=== PATIENT | male | born 1995 | race Two or more races ===

== ENCOUNTER 2021-12-15 20:17 | Emergency (ER) | payer BC ==
[~2021-12-15] VITALS: Ht 172.7 cm; Wt 72.6 kg
[2021-12-15] MEDS ORDERED: LIDOCAINE 1% INJ 50 ML MDV IJ ONE (20:43)
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
--- NOTE | 2021-12-15 20:50 | NUR ---
20G IV LINE RF ESTABLOSHED. BLOOD DRAWN AND SENT TO LAB
--- NOTE | 2021-12-15 20:53 | NUR ---
CONSENTSIGNED AND PLACED IN PT CHART
--- NOTE | 2021-12-15 20:57 | NUR ---
DR DOMINGUEZ AT BEDSIDE FOR MECHANICAL CORPORAL ASPIRATION FOR PRIAPISM
[2021-12-15] MEDS ORDERED: TERBUTALINE SULFATE 1 MG/ML VIAL ONE (20:58)
[2021-12-15] MEDS ORDERED: TERBUTALINE SULFATE 1 MG/ML VIAL SQ ONE (21:00)
[2021-12-15] MEDS ORDERED: LIDOCAINE HCL/PF 1% 30 ML VIAL IJ ONE (21:00)
[2021-12-15] MEDS ORDERED: PHENYLEPHRINE 10 MG/ML VIAL ONE (21:01)
[2021-12-15 21:04] LABS: BASOPHILS # (AUTO) 0.1 K/uL (0.0-0.2); BASOPHILS % (AUTO) 0.7 % (0.0-2.0); EOSINOPHILS % (AUTO) 1.9 % (0.0-6.0); HEMATOCRIT 45 % (39-51); HEMOGLOBIN 15.1 g/dL (13.5-17.5); LYMPHOCYTES # (AUTO) 3.1 K/uL (0.8-4.8); LYMPHOCYTES % (AUTO) 30.8 % (20.0-44.0); MEAN CORPUSCULAR HGB CONC 33 g/dl (31.0-36.0); MEAN CORPUSCULAR VOLUME 90 fL (80-96); MONOCYTES # (AUTO) 0.8 K/uL (0.1-1.30); NEUTROPHILS # (AUTO) 5.9 K/uL (1.8-8.9); NEUTROPHILS % (AUTO) 58.6 % (43.0-81.0); PLATELET COUNT (AUTO) 335 K/uL (150-450); RED BLOOD CELL COUNT(AUTO) 5.04 MIL/uL (4.5-6.0); WHITE BLOOD COUNT (AUTO) 10.1 K/uL (4.3-11.0)
[2021-12-15 21:12] LABS: CALCIUM, SERUM 8.7 mg/dL (8.5-10.1); CREATININE 0.9 mg/dL (0.6-1.3)
--- NOTE | 2021-12-15 21:14 | NUR ---
VBG COLLECTED BY DR DOMINGUEZ AND SENT TO LAB
--- NOTE | 2021-12-15 21:20 | NUR ---
DR EARL ON PHONE WITH UROLOGIST DR EATON
[2021-12-15] MEDS ORDERED: PHENYLEPHRINE 10 MG/ML VIAL IJ ONE (21:30)
[2021-12-15 21:40] LABS: ABG BASE EXCESS -7.7 mmol/L; ABG PCO2 51.6 mmHg (35.0-45.0); ABG PH 7.216 (7.350-7.450); ABG PO2 58.9 mmHg (75.0-100.0); COHb 2.1 % (0.5-1.5); MetHb 0.4 % (0.0-1.5); O2Hb 89.4 % (94.0-97.0); SITE, ABG Other
[2021-12-15 22:30] VITALS: BP 133/65
--- NOTE | 2021-12-15 22:30 | NUR ---
Patient discharged to home in stable condition. Written and verbal after care instructions given. Patient verbalizes understanding of instruction.IV removed. Catheter intact and site benign. Pressure and 4x4 applied to site. No bleeding noted.
== END 2021-12-15 22:30 | disposition home or self-care (01) ==
LOC: ER 20:24
DX: N48.39 Other priapism (principal); Z91.013 Allergy to seafood; R03.0 Elevated blood-pressure reading, without diagnosis of hypertension
CPT/HCPCS: 99284; 54220; 85025; 80048; 36415; 85730; 36600; J3490 ×2; J2370; J3105; 82803-TC

== ENCOUNTER 2021-12-29 08:26 | Emergency (ER) | payer BC ==
[~2021-12-29] VITALS: Ht 172.7 cm; Wt 72.6 kg
[2021-12-29] MEDS ORDERED: LIDOCAINE 1%-EPI 1:100,000 20 ML VIAL ONE (08:37)
[2021-12-29] MEDS ORDERED: LORAZEPAM INJ 2 MG/ML VIAL ONE (08:51)
--- NOTE | 2021-12-29 08:56 | NUR ---
DR WHITNEY AT BEDSIDE W/ PT
[2021-12-29] MEDS ORDERED: PHENYLEPHRINE 10 MG/ML VIAL IV ONE (09:00)
[2021-12-29] MEDS ORDERED: PHENYLEPHRINE 50 MG in IV NS 0.9% 245 ML IV ONE (09:00)
[2021-12-29] MEDS ORDERED: LIDOCAINE HCL/PF 1% 30 ML VIAL TP ONE (09:00)
[2021-12-29] MEDS ORDERED: LORAZEPAM INJ 2 MG/ML VIAL IV ONE (09:00)
--- NOTE | 2021-12-29 09:00 | NUR ---
IV LINE ESTABLISHED ON LAC #20.
--- NOTE | 2021-12-29 09:55 | NUR ---
IV removed. Catheter intact and site benign. Pressure and 4x4 applied to site. No bleeding noted.
[2021-12-29 10:52] VITALS: BP 118/68
--- NOTE | 2021-12-29 10:54 | NUR ---
Patient discharged to home in stable condition. Written and verbal after care instructions given. Patient verbalizes understanding of instruction.
== END 2021-12-29 10:54 | disposition home or self-care (01) ==
LOC: ER 08:31
DX: N48.39 Other priapism (principal); F32.A Depression, unspecified; Z91.013 Allergy to seafood
CPT/HCPCS: 99284; 54220; 96374; J2060; J3490 ×2; J7050; J2370

== ENCOUNTER 2022-02-07 15:17 | Emergency (ER) | payer BC ==
[~2022-02-07] VITALS: Ht 172.7 cm; Wt 73.0 kg
--- NOTE | 2022-02-07 15:31 | NUR ---
DR ORTIZ AT BEDSIDE
[2022-02-07] MEDS ORDERED: LIDOCAINE 2% 20 ML MDV ONE (15:39)
[2022-02-07] MEDS ORDERED: MORPHINE SULFATE INJ 4 MG/ML DISP.SYRIN ONE (15:42)
[2022-02-07] MEDS ORDERED: LIDOCAINE 2% 20 ML MDV TP ONE (16:00)
[2022-02-07] MEDS ORDERED: MORPHINE SULFATE INJ 2 MG/ML DISP.SYRIN IM ONE (16:00)
[2022-02-07] MEDS ORDERED: PHENYLEPHRINE 10 MG/ML VIAL IV ONE (16:00)
[2022-02-07 18:49] VITALS: BP 133/68
== END 2022-02-07 18:50 | disposition home or self-care (01) ==
LOC: ER 15:20
DX: N48.30 Priapism, unspecified (principal); F32.A Depression, unspecified; Z91.013 Allergy to seafood
CPT/HCPCS: 99285; 96374; 96372; J2270; J2370; J3490

== ENCOUNTER 2022-02-11 16:07 | Emergency (ER) | payer BC ==
[~2022-02-11] VITALS: Ht 172.7 cm; Wt 81.6 kg
[2022-02-11] MEDS ORDERED: MORPHINE SULFATE INJ 2 MG/ML DISP.SYRIN IV ONE (18:00)
[2022-02-11] MEDS ORDERED: ONDANSETRON HCL/PF 4 MG/2 ML VIAL IVP ONE (18:00)
[2022-02-11] MEDS ORDERED: PSEUDOEPHEDRINE HCL 30 MG TABLET PO ONE (18:00)
[2022-02-11] MEDS ORDERED: MORPHINE SULFATE INJ 4 MG/ML DISP.SYRIN ONE (18:10)
[2022-02-11] MEDS ORDERED: ONDANSETRON HCL/PF 4 MG/2 ML VIAL ONE (18:10)
[2022-02-11] MEDS ORDERED: PSEUDOEPHEDRINE HCL 30 MG TABLET ONE (18:11)
[2022-02-11] MEDS ORDERED: MORPHINE SULFATE INJ 2 MG/ML DISP.SYRIN IM ONE (18:30)
[2022-02-11] MEDS ORDERED: ONDANSETRON HCL/PF 4 MG/2 ML VIAL IM ONE (18:30)
--- NOTE | 2022-02-11 18:30 | NUR ---
MEDICATIONS ADMINISTERED INDICATED, LAILA WELL.
[2022-02-11] MEDS ORDERED: LIDOCAINE HCL/PF 1% 30 ML VIAL TP ONE (19:30)
--- NOTE | 2022-02-11 21:02 | NUR ---
Patient discharged to home in stable condition. Written and verbal after care instructions given. Patient verbalizes understanding of instruction.
[2022-02-11 21:06] VITALS: BP 152/87
== END 2022-02-11 21:06 | disposition home or self-care (01) ==
LOC: ER 16:14
DX: N48.30 Priapism, unspecified (principal); N48.89 Other specified disorders of penis; F32.A Depression, unspecified; Z91.013 Allergy to seafood
CPT/HCPCS: 99284; 96372 ×2; 76870; J3490; J2270; J2405

== ENCOUNTER 2022-02-14 10:00 | Emergency (ER) | payer BC ==
[~2022-02-14] VITALS: Ht 172.7 cm; Wt 81.6 kg
[2022-02-14] MEDS ORDERED: TERBUTALINE SULFATE 1 MG/ML VIAL ONE (10:27)
[2022-02-14] MEDS ORDERED: PHENYLEPHRINE 10 MG/ML VIAL ONE ×2 (10:27→11:03)
[2022-02-14] MEDS ORDERED: MORPHINE SULFATE INJ 2 MG/ML DISP.SYRIN ONE (10:27)
[2022-02-14] MEDS ORDERED: MORPHINE SULFATE INJ 2 MG/ML DISP.SYRIN IM ONE (10:30)
[2022-02-14] MEDS ORDERED: TERBUTALINE SULFATE 1 MG/ML VIAL SQ ONE (10:30)
[2022-02-14] MEDS ORDERED: PHENYLEPHRINE 10 MG/ML VIAL IJ ONE ×2 (10:30→12:00)
[2022-02-14] MEDS ORDERED: LIDOCAINE HCL/PF 1% 30 ML VIAL IM ONE (11:00)
[2022-02-14] MEDS ORDERED: LIDOCAINE HCL/MPF 1% 30 ML VIAL IJ ONE ×2 (11:20→11:55)
[2022-02-14] MEDS ORDERED: PHENYLEPHRINE 50 MG in IV NS 0.9% 245 ML IV ONE (11:30)
[2022-02-14] MEDS ORDERED: PHENYLEPHRINE 50 MG in IV NS 0.9% 245 ML IV PRN (12:00)
--- NOTE | 2022-02-14 12:43 | NUR ---
UROLOGIST DROP PIT WORKER AND ER MD ON THE PHONE
--- NOTE | 2022-02-14 12:43 | NUR ---
CALLED UROLOGIST PHARMACOEPIDEMIOLOGIST
[2022-02-14] MEDS ORDERED: HYDROCODONE/APAP 5/325MG TABLET PO ONE (13:00)
[2022-02-14] MEDS ORDERED: HYDROCODONE/APAP 5/325MG TABLET ONE (14:02)
[2022-02-14] MEDS ORDERED: OXYC5TAB3 PO (14:06)
[2022-02-14 14:32] VITALS: BP 126/64
--- NOTE | 2022-02-14 14:32 | NUR ---
Patient discharged to home in stable condition. Written and verbal after care instructions given. Patient verbalizes understanding of instruction.
== END 2022-02-14 14:33 | disposition home or self-care (01) ==
LOC: ER 10:51
DX: N48.39 Other priapism (principal); N48.89 Other specified disorders of penis; F32.A Depression, unspecified; Z91.013 Allergy to seafood; Z79.899 Other long term (current) drug therapy
CPT/HCPCS: 99284; 96372 ×2; J3490 ×3; J2370; J3105; J2270

== ENCOUNTER 2022-10-07 02:01 | Emergency (ER) | payer BC, OTHER ==
[~2022-10-07] VITALS: Ht 172.7 cm; Wt 81.6 kg
[~2022-10-07 02:01] MED LIST: OXYC5TAB3 PO
[2022-10-07 03:01] VITALS: BP 151/98
[2022-10-07] MEDS ORDERED: CLIN300C12 PO (04:23)
[2022-10-07] MEDS ORDERED: IBUP-1955 PO (04:23)
[2022-10-07] MEDS ORDERED: CLIN30GE2 TP (04:23)
[2022-10-07] MEDS ORDERED: KETOROLAC TROMETHAMINE INJ 30 MG/ML VIAL IM ONE (04:30)
[2022-10-07] MEDS ORDERED: KETOROLAC TROMETHAMINE INJ 30 MG/ML VIAL ONE (05:18)
== END 2022-10-07 05:25 | disposition home or self-care (01) ==
LOC: ER 02:07
DX: L73.2 Hidradenitis suppurativa (principal); F32.A Depression, unspecified; Z91.013 Allergy to seafood
CPT/HCPCS: 99283; 96372; J1885

== ENCOUNTER 2022-10-08 04:23 | Emergency (ER) | payer BC, OTHER ==
[~2022-10-08] VITALS: Ht 172.7 cm; Wt 81.6 kg
[~2022-10-08 04:23] MED LIST changes: +CLIN300C12 PO; +CLIN30GE2 TP; +IBUP-1955 PO
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
--- NOTE | 2022-10-08 04:55 | NUR ---
Patient eloped from facility. ER MD notified.
[2022-10-08 04:57] VITALS: BP 140/83
== END 2022-10-08 04:58 | disposition left against medical advice (07) ==
LOC: ER 04:24
DX: S00.81XA Abrasion of other part of head, initial encounter (principal); F32.A Depression, unspecified; Z91.013 Allergy to seafood; Z59.00 Homelessness unspecified; Z79.899 Other long term (current) drug therapy; Y09 Assault by unspecified means; Y93.89 Activity, other specified; Y92.89 Other specified places as the place of occurrence of the external cause; Y99.8 Other external cause status